=== PATIENT | male | born 1980 | race Caucasian/White ===

== ENCOUNTER 2020-11-25 11:15 | Emergency (ER) | payer OTHER ==
[~2020-11-25] VITALS: Ht 180.3 cm; Wt 116.6 kg
[~2020-11-25 11:15] MED LIST: ADVAIR HFA 1112 UNIT INH; ALBUTEROL INH; ALBUTEROL NEB; ALBUTEROL2.5 MG/31 IH; PREDNISONE 10 M10 M1; PREDNISONE 20 M20 M1 PO; PROVENTIL IH
[2020-11-25] MEDS ORDERED: HYDROCODON-ACE1 EAC7 PO (13:00)
[2020-11-25] MEDS ORDERED: IBUPROFEN 800800 MG PO (13:00)
[2020-11-25 13:31] VITALS: BP 164/114
== END 2020-11-25 13:32 | disposition home or self-care (01) ==
LOC: M.ERS 11:15
DX: M25.511 Pain in right shoulder (principal); J45.909 Unspecified asthma, uncomplicated